=== PATIENT | female | born 1990 | race Caucasian/White ===

== ENCOUNTER 2017-12-08 12:36 | Inpatient (IN) | payer MEDICARE, OTHER ==
[~2017-12-08] VITALS: Ht 165.1 cm; Wt 90.5 kg
[~2017-12-08 12:36] MED LIST: AMET90TA PO; CLON.5 PO; CLON1 PO; CYMB60CA PO; DEPA500T3 PO; DIPH50TA3 PO; GEOD80CA PO; LEVO25TA4 PO; RISP1 PO
[2017-12-08 12:54] VITALS: BP 134/70; PULSE 115; RESP 16; TEMP 96.9; O2SAT 97
[2017-12-08] MEDS ORDERED: TRAM50TA PO (16:31)
[2017-12-08] MEDS ORDERED: DIPH-148 PO (16:31)
[2017-12-08] MEDS ORDERED: LORA2TAB7 PO (16:31)
[2017-12-08] MEDS ORDERED: CYCL10TA PO (16:31)
[2017-12-08] MEDS ORDERED: BENZ0.5T PO (16:31)
[2017-12-08] MEDS ORDERED: PALI156P IM (16:31)
[2017-12-08] MEDS ORDERED: LORA1TAB12 PO ×2 (16:31)
[2017-12-08 16:37] VITALS: BP 139/80; PULSE 107; RESP 18; TEMP 97.8; O2SAT 98
[2017-12-08] MEDS ORDERED: LORazepam 2 MG TAB PO ONE (16:45)
--- NOTE | 2017-12-08 16:46 | PD ---
HPI Chief Complaint: Psychiatric Symptoms Time Seen by Provider: 16:35 Travel History International Travel<30 days: No Contact w/Intl Traveler<30days: No Traveled to known affect area: No History of Present Illness HPI 27-year-old female with long psychiatric history, with history of bipolar disorder as well as ADHD, is brought in by her mom with increased agitation and acting out at home. Patient is currently on InVega injections which she just got on Monday. She also takes Depakote as well as lorazepam for her psych symptoms. Mom states that she is stating that she is suicidal and feeling that she is afraid she is being followed by someone who wants to kill her. Mom states that she has had to take scissors away from her at home, as she has been suicidal. She has no active lesions or signs of trauma. Patient has no recent illnesses. She denies . History is taken from the mom. She is allergic to latex. PFSH Past Medical History Hx Anticoagulant Therapy: No ADHD: Yes Arthritis: No Autoimmune Disease: No Bipolar Disorder: Yes Depression: Yes Cancer: No Cardiovascular Problems: No Chemotherapy: No Cerebrovascular Accident: No Developmental Delay: Yes (MR) Diabetes: No Diminished Hearing: Yes (slightly dimished left hearing ) Endocrine: Yes Headaches: No Immune Disorder: No Kidney Stones: No Musculoskeletal: No Psychiatric: Yes Reproductive: No Respiratory: No Immunizations Current: Yes Migraines: No Radiation Therapy: No Renal Failure: No Seizures: No Sickle Cell Disease: No Thyroid Disease: Yes (February diagnosis of hypothyroidism) Ulcer: No Influenza Vaccination: No ?: Not : 0 Past Surgical History Surgical History: No Previous Surgery AICD: No Appendectomy: No Cholecystectomy: No Insulin Pump: No Joint Replacement: No Pacemaker: No Other Surgery: No Social History Alcohol Use: No Tobacco Use: No Substance Use: No Allergies-Medications (Allergen,Severity, Reaction): Coded Allergies: latex (Unverified Adverse Reaction, Intermediate, Swelling, 12/08/17) Reported Meds & Prescriptions Reported Meds & Active Scripts Active Depakote ER (Divalproex Sodium) 500 Mg Alex 500 Mg PO BID Irma (Levonorgestrel-Ethinyl Estradiol) 90-20 Mcg Tab 1 Tab PO DAILY Levothyroxine (Levothyroxine Sodium) 25 Mcg Tab 25 Mcg PO DAILY Reported Flexeril (Cyclobenzaprine HCl) 10 Mg Tab 10 Mg PO TID Tramadol (Tramadol HCl) 50 Mg Tab 50 Mg PO Q8H PRN Invega Sustenna Inj (Paliperidone Palmitate) 156 Mg/Ml Inj 156 Mg IM Q28D Benztropine (Benztropine Mesylate) 0.5 Mg Tab 2 Mg PO DAILY Lorazepam 2 Mg Tab 2 Mg PO HS PRN Lorazepam 1 Mg Tab 1 Mg PO NOON PRN Lorazepam 1 Mg Tab 1 Mg PO DAILYAC PRN Zzzquil (Diphenhydramine (Sleep)) 25 Mg Cap 50 Mg PO HS PRN Review of Systems Except as stated in HPI: all other systems reviewed are Neg General / Constitutional: No: Fever Eyes: No: Visual changes HENT: No: Headaches Cardiovascular: No: Chest Pain or Discomfort Respiratory: No: Shortness of Breath Gastrointestinal: No: Abdominal Pain Genitourinary: No: Dysuria Musculoskeletal: No: Pain Skin: No Rash Neurologic: No: Weakness Psychiatric: Positive: Anxiety, Suicidal Ideations, Mood Disorder, No: Depression, Disorder of Thought, Substance Abuse, Homicidal Ideation Endocrine: No: Polydipsia Hematologic/Lymphatic: No: Easy Bruising Physical Exam Exam Limitations: Poor Historian, Psychotic Narrative GENERAL: Patient does appear anxious, and does not answer appropriately. SKIN: Warm and dry. Normal color. Normal turgor. HEAD: Atraumatic. Normocephalic. EYES: Pupils equal and round. No scleral icterus. No injection or drainage. ENT: No nasal bleeding or discharge. Mucous membranes pink and moist. NECK: Trachea midline. Supple and nontender CARDIOVASCULAR: Regular rate and rhythm. RESPIRATORY: No accessory muscle use. Clear to auscultation. Breath sounds equal bilaterally. GASTROINTESTINAL: Abdomen soft, non-tender, nondistended. Hepatic and splenic margins not palpable. MUSCULOSKELETAL: Extremities without clubbing, cyanosis, or edema. No obvious deformities. NEUROLOGICAL: Awake and alert. No obvious cranial nerve deficits. Motor grossly within normal limits. Five out of 5 muscle strength in the arms and legs. Normal speech. PSYCHIATRIC: Appropriate mood and affect; insight and judgment normal. Data Data Last Documented VS Vital Signs Date Time Temp Pulse Resp B/P (MAP) Pulse Ox O2 Delivery O2 Flow Rate FiO2 12/08/17 16:37 97.8 107 18 139/80 (99) 98 Room Air Orders Orders Complete Blood Count With Diff (12/08/17 16:36) Comprehensive Metabolic Panel (12/08/17 16:36) Thyroid Stimulating Hormone (12/08/17 16:36) Urinalysis - C+S If Indicated (12/08/17 16:36) Valproic Acid (Depakene) (12/08/17 16:36) Psych Screen (12/08/17 16:36) Drug Screen, Random Urine (12/08/17 16:36) Alcohol (Ethanol) (12/08/17 16:36) Lorazepam (Ativan) (12/08/17 16:45) Labs Laboratory Tests Test 12/08/17 17:10 Urine Color YELLOW Urine Turbidity HAZY Urine pH 6.0 Urine Specific [place] 1.025 Urine Protein NEG mg/dL Urine Glucose (UA) 300 mg/dL Urine Ketones 10 mg/dL Urine Occult Blood SMALL Urine Nitrite NEG Urine Bilirubin NEG Urine Urobilinogen LESS THAN 2.0 MG/DL Urine Leukocyte Esterase NEG Urine RBC 4 /hpf Urine WBC LESS THAN 1 /hpf Urine Squamous Epithelial Cells 16 /hpf Urine Mucus FEW /lpf Microscopic Urinalysis Comment CULT NOT INDICATED MDM Medical Decision Making Medical Screen Exam Complete: Yes Emergency Medical Condition: Yes Medical Record Reviewed: Yes Differential Diagnosis Psychosis. Suicidal ideation. Need for psychiatric evaluation. Narrative Course Patient appears medically stable at time of exam. Psychiatric labs ordered per protocol including Depakote. Patient is given 2 mg lorazepam p.o. Patient is medically cleared for psychiatric evaluation. Condition: Stable Nas Elaine Dec 08, 2017 16:46
[2017-12-08 18:33] LABS: BILIRUBIN, URINE NEG (NEG); BLOOD, URINE SMALL (NEG); GLUCOSE,URINE 300 mg/dL (NEG); KETONE, URINE 10 mg/dL (NEG); MUCUS URINE FEW /lpf (OCC); NITRITE,URINE NEG (NEG); SQUAMOUS EPITHELIAL CELL URINE 16 /hpf (0-5); URINE COLOR YELLOW (YELLW/STRAW); URINE LEUKOCYTE ESTERASE NEG (NEG)
[2017-12-08 19:01] LABS: AUTOMATED NEUTROPHIL # 5.7 TH/MM3 (1.8-7.7); BASOPHIL % 0.4 % (0.0-2.0); EOSINOPHIL # 0.1 TH/MM3 (0-0.4); EOSINOPHIL % 0.6 % (0.0-4.0); HEMATOCRIT 41.9 % (35.0-46.0); HEMOGLOBIN 14.2 GM/DL (11.6-15.3); LYMPHOCYTE # 2.9 TH/MM3 (1.0-4.8); MEAN CELL VOLUME 85.8 FL (80.0-100.0); MEAN CORPUSCULAR HEMOGLOBIN 29.1 PG (27.0-34.0); MEAN CORPUSCULAR HGB CONC 33.9 % (32.0-36.0); MEAN PLATELET VOLUME 8.8 FL (7.0-11.0); MONO % 7.3 % (0.0-8.0); MONOCYTE # 0.7 TH/MM3 (0-0.9); NEUT % 60.7 % (16.0-70.0); PLATELET COUNT 221 TH/MM3 (150-450); RED BLOOD COUNT 4.89 MIL/MM3 (4.00-5.30); RED CELL DISTRIBUTION WIDTH 12.9 % (11.6-17.2); WHITE BLOOD COUNT 9.3 TH/MM3 (4.0-11.0)
[2017-12-08 19:04] VITALS: BP 150/84; PULSE 114; RESP 18; TEMP 98.5; O2SAT 97
[2017-12-08 19:27] LABS: ALBUMIN 3.2 GM/DL (3.4-5.0); AST (GOT) 14 U/L (15-37); BICARBONATE 26.9 MEQ/L (21.0-32.0); BLOOD UREA NITROGEN 9 MG/DL (7-18); CALCIUM 9.3 MG/DL (8.5-10.1); CHLORIDE 100 MEQ/L (98-107); CREATININE 0.55 MG/DL (0.50-1.00); GLOMERULAR FILTRATION RATE 134 ML/MIN (>89); GLUCOSE,RANDOM 99 MG/DL (74-106); SODIUM (NA) 137 MEQ/L (136-145)
[2017-12-08 19:28] LABS: ALT (GPT) 21 U/L (10-53)
[2017-12-08 19:38] LABS: ALKALINE PHOSPHATASE 130 U/L (45-117); TOTAL BILIRUBIN ADULT 0.3 MG/DL (0.2-1.0); TOTAL PROTEIN 7.3 GM/DL (6.4-8.2)
[2017-12-08 22:13] VITALS: BP 117/73; PULSE 102; RESP 18; TEMP 98.4; O2SAT 96
[2017-12-09 01:49] VITALS: BP 132/81; PULSE 130; RESP 18; TEMP 98.6; O2SAT 95
[2017-12-09] MEDS ORDERED: LORazepam 2 MG/ML VIAL IM ONE (02:00)
[2017-12-09 06:14] VITALS: BP 124/72; PULSE 89; RESP 18; TEMP 98; O2SAT 95
[2017-12-09] MEDS ORDERED: LORazepam 1 MG TAB PO ONE (09:45)
[2017-12-09 10:15] VITALS: BP_SYST 122; BP_SYST 129; BP_DIAS 63; BP_DIAS 75; PULSE 120; PULSE 69; RESP 18; O2SAT 95; O2SAT 99
[2017-12-09] MEDS ORDERED: MAGNESIUM HYDROXIDE SUSP 30 ML CUP PO PRN (13:15)
[2017-12-09] MEDS ORDERED: ALUMINUM/MAGNESIUM/SIMETH 30 ML CUP PO PRN (13:15)
[2017-12-09] MEDS ORDERED: LORazepam 2 MG/ML VIAL IM PRN (13:15)
[2017-12-09 13:27] VITALS: BP 134/78; PULSE 112; RESP 20; TEMP 97.7; O2SAT 98
--- NOTE | 2017-12-09 13:28 | HHI.HP ---
Provisional Diagnosis Admission Date Dec 09, 2017 at 13:05 Agar I. Unspecified psychosis Certification of Person's Competence To Provide Express and Informed Consent I have personally examined Jarocho Castillo , a person being served at [facility] on, Dec 09, 2017 13:13. Express and informed consent means consent voluntarily given in writing, by a competent person, after sufficient explanation and disclosure of the subject matter involved to enable the person to make a knowing and willful decision without any element of force, fraud, deceit, duress, or other form of constraint or coercion. This person is 18 years of age or older, is not now known to be incompetent to consent to treatment with a guardian advocate, and does not have a health care surrogate or proxy currently making medical treatment decisions. I have found this person to be one of the following: [] Competent to provide express and informed consent, as defined above, for voluntary admission to this facility and is competent to provide express and informed consent for treatment. He/she has the consistent capacity to make well reasoned, willful, and knowing decisions concerning his or her medical or mental health treatment. The person fully and consistently understands the purpose of the admission for examination/placement and is fully capable of personally exercising all rights assured [place]] Incompetent to provide express and informed consent to voluntary admission , and this is incompetent to provide express and informed consent to treatment. The person must be transferred to involuntary status and a petition for a guardian advocate filed with the Circuit Court. [] Refusing to provide express and informed consent to voluntary admission but is competent to provide express and informed consent for treatment. The person must be discharged or transferred to involuntary status. Form shall be completed within 24 hours of a person's arrival at the receiving facility and filed in the clinical record of each person: 1. Admitted on a voluntary basis 2. Permitted to provide express and informed consent to his/her own treatment 3. Allowed to transfer from involuntary to voluntary status 4. Prior to permitting a person to consent to his or her own treatment after having been previously found incompetent to consent to treatment. History of Present Illness Capacity: Lacks Capacity HPI Patient is a 27-year-old woman, single, domiciled with mother, with a past psychiatric history of intellectual deficit, bipolar disorder as per chart , ADHD, previous psychiatric admissions, unknown if previous suicide attempt or self injurious behavior, was brought in by mom due to agitation and acting out at home who was brought in under [facility] act due to having threatened to stab herself with scissors along with paranoid ideations which she was admitted to the inpatient psychiatry for further evaluation and management. Patient was seen at the ER noted to be, cooperative, concrete thought processes during interview as patient has significant intellectual deficit. Patient states that she had been feeling "not so good" stating that people were laughing at her. Patient is alert and oriented 3, patient states that she was brought in by her caregiver as a caregiver was concerned because she was talking to herself. Patient states that she had ever seen her do that and was hearing the voice of Jack, kristian and, states hearing his voice. Patient states she also stated that she wanted to see her father having unable to elaborate. Patient states that she was having thoughts of hurting herself this morning the voices are saying mean things. She states that he told everyone during her last hospitalizations that the voices went away so that she can go home but mentions that they never did. She also reports that the auditory hallucinations started after she had met a boy named Jack at [facility]. As per chart patient recently was continued on Invega cisterna with her last dose on Monday. As per collateral obtained in the ER mother reported that patient had been suicidal and concerned that patient was afraid someone was following her and wants to kill her. Mother had also reported that she had to take scissors away from home due to patient being suicidal. Review of Systems Integumentary: COMPLAINS OF: Rash (on medial aspects of arms) Except as stated in HPI: all other systems reviewed are Neg Past Psych History Psychological trauma history unknown as history is limited due to patient's intellectual deficits Violence risk - others (6 mos) low Violence risk - self (6 mos) elevated due to recent suicidal statements Substance Abuse History Drugs/Alcohol past 12 months None as per chart Past Family Social History Coded Allergies: latex (Unverified Adverse Reaction, Intermediate, Swelling, 12/08/17) Active Scripts Divalproex ER (Depakote ER) 500 Mg Alex, 500 MG PO BID for health, #30 TAB 2 Refills Prov:Francisco J Turner MD 08/24/16 Levonorgestrel-Ethinyl Estradiol (Irma) 90-20 Mcg Tab, 1 TAB PO DAILY for Control, #28 TAB 0 Refills Prov:Francisco J Turner MD 07/26/16 Levothyroxine (Levothyroxine) 25 Mcg Tab, 25 MCG PO DAILY for Thyroid, #30 TAB 0 Refills Prov:Francisco J Turner MD 07/26/16 Reported Medications Cyclobenzaprine (Flexeril) 10 Mg Tab, 10 MG PO TID for Muscle Spasm, #90 TAB 0 Refills 12/08/17 Tramadol (Tramadol) 50 Mg Tab, 50 MG PO Q8H Y for PAIN, TAB 0 Refills 12/08/17 Paliperidone Palmitate Inj (Invega Sustenna Inj) 156 Mg/Ml Inj, 156 MG IM Q28D for Schizophrenia, #1 VIAL 0 Refills 12/08/17 Benztropine (Benztropine) 0.5 Mg Tab, 2 MG PO DAILY, #60 TAB 0 Refills 12/08/17 Lorazepam (Lorazepam) 2 Mg Tab, 2 MG PO HS Y for ANXIETY AND/OR INSOMNIA, TAB 0 Refills 12/08/17 Lorazepam (Lorazepam) 1 Mg Tab, 1 MG PO NOON Y for ANXIETY AND/OR INSOMNIA, TAB 0 Refills 12/08/17 Lorazepam (Lorazepam) 1 Mg Tab, 1 MG PO DAILYAC Y for ANXIETY, TAB 0 Refills 12/08/17 Diphenhydramine (Sleep) (Zzzquil) 25 Mg Cap, 50 MG PO HS Y for INSOMNIA, CAP 0 Refills 12/08/17 Discontinued Scripts Dulabelardo SINGH (Adrienmbalta ) 60 Mg Capdr, 60 MG PO DAILY for depression/anxiety, #30 CAP 2 Refills Prov:Francisco J Turner MD 08/24/16 Risperidone (Risperdal) 1 Mg Tab, 1 MG PO BID for health, #60 TAB 2 Refills Prov:Francisco J Turner MD 08/24/16 Clonazepam (Klonopin) 1 Mg Tab, 1 MG PO 1 am 1hs for health, #60 TAB 2 Refills Prov:Francisco J Turner MD 08/24/16 Clonazepam (Klonopin) 0.5 Mg Tab, 0.5 MG PO 1 at 1600 for health, #30 TAB 2 Refills Prov:Francisco J Turner MD 08/24/16 Ziprasidone (Geodon) 80 Mg Cap, 80 MG PO HS for health, #30 CAP 2 Refills Prov:Francisco J Turner MD 08/24/16 Levonorgestrel-Ethinyl Estradiol (Irma) 90-20 Mcg Tab, 1 TAB PO DAILY for Control, #28 TAB 0 Refills Prov:Francisco J Turner MD 07/26/16 Current Medications Medications (Trade) Dose Ordered Sig/Yazmin Route Start Time Stop Time Status Last Admin (Ativan) 1 mg Q6H PRN PO 12/09/17 13:15 UNV (Ativan Inj) 1 mg Q6H PRN IM 12/09/17 13:15 UNV (Benadryl) 50 mg HS PRN PO 12/09/17 13:15 UNV (Tylenol) 650 mg Q4H PRN PO 12/09/17 13:15 UNV (Milk Of Magnesia Liq) 30 ml DAILY PRN PO 12/09/17 13:15 UNV (Mag-Al Plus Susp Liq) 30 ml Q6H PRN PO 12/09/17 13:15 UNV (Habitrol 21 Mg Patch.24 Hr) 1 patch DAILY T-DERMAL 12/10/17 09:00 UNV (Cogentin) 2 mg DAILY PO 12/10/17 09:00 UNV (Depakote Er) 500 mg BID PO 12/09/17 21:00 UNV (Synthroid) 25 mcg DAILY PO 12/10/17 09:00 UNV (Invega Sustenna Inj) 156 mg Q28D IM 12/09/17 13:15 UNV Non-Formulary Medication 1 tab DAILY PO 12/10/17 09:00 UNV Family Psych History unknown as history is limited due to patient's intellectual deficits Social History Single, domiciled with mom. Patient's Strengths (min. 2) Verbal and communicative Physical Exam Patient noted to be in acute distress although noted to have rash on the medial aspect of both arms, no gross motor of maladies, no signs of EPS or tremor, no psychomotor agitation or retardation. Vital Signs Vital Signs Date Time Temp Pulse Resp B/P (MAP) Pulse Ox O2 Delivery O2 Flow Rate FiO2 12/09/17 13:00 12/09/17 10:15 120 18 95 Room Air 12/09/17 06:14 98.0 Lab Results Labs reviewed Test 12/08/17 17:10 12/08/17 18:00 Urine Color YELLOW Urine Turbidity HAZY Urine pH 6.0 Urine Specific [place] 1.025 Urine Protein NEG mg/dL Urine Glucose (UA) 300 mg/dL Urine Ketones 10 mg/dL Urine Occult Blood SMALL Urine Nitrite NEG Urine Bilirubin NEG Urine Urobilinogen LESS THAN 2.0 MG/DL Urine Leukocyte Esterase NEG Urine RBC 4 /hpf Urine WBC LESS THAN 1 /hpf Urine Squamous Epithelial Cells 16 /hpf Urine Mucus FEW /lpf Microscopic Urinalysis Comment CULT NOT INDICATED Urine Opiates Screen NEG Urine Barbiturates Screen NEG Urine Amphetamines Screen NEG Urine Benzodiazepines Screen NEG Urine Cocaine Screen NEG Urine Cannabinoids Screen NEG White Blood Count 9.3 TH/MM3 Red Blood Count 4.89 MIL/MM3 Hemoglobin 14.2 GM/DL Hematocrit 41.9 % Mean Corpuscular Volume 85.8 FL Mean Corpuscular Hemoglobin 29.1 PG Mean Corpuscular Hemoglobin Concent 33.9 % Red Cell Distribution Width 12.9 % Platelet Count 221 TH/MM3 Mean Platelet Volume 8.8 FL Neutrophils (%) (Auto) 60.7 % Lymphocytes (%) (Auto) 31.0 % Monocytes (%) (Auto) 7.3 % Eosinophils (%) (Auto) 0.6 % Basophils (%) (Auto) 0.4 % Neutrophils # (Auto) 5.7 TH/MM3 Lymphocytes # (Auto) 2.9 TH/MM3 Monocytes # (Auto) 0.7 TH/MM3 Eosinophils # (Auto) 0.1 TH/MM3 Basophils # (Auto) 0.0 TH/MM3 CBC Comment DIFF FINAL Differential Comment Blood Urea Nitrogen 9 MG/DL Creatinine 0.55 MG/DL Random Glucose 99 MG/DL Total Protein 7.3 GM/DL Albumin 3.2 GM/DL Calcium Level 9.3 MG/DL Alkaline Phosphatase 130 U/L Aspartate Amino Transf (AST/SGOT) 14 U/L Alanine Aminotransferase (ALT/SGPT) 21 U/L Total Bilirubin 0.3 MG/DL Sodium Level 137 MEQ/L Potassium Level 3.4 MEQ/L Chloride Level 100 MEQ/L Carbon Dioxide Level 26.9 MEQ/L Anion Gap 10 MEQ/L Estimat Glomerular Filtration Rate 134 ML/MIN Thyroid Stimulating Hormone 3rd Gen 2.120 uIU/ML Valproic Acid (Depakene) Level 73 MCG/ML Ethyl Alcohol Level LESS THAN 3 MG/DL Mental Status Examination Appearance: Appropriate Consciousness: Alert Orientation: Person, Place, Date/Time Motor Activity: Normal gait Speech: Unremarkable Language: Adequate Fund of Knowledge: Poor Attention and Concentration: Adequate Memory: Unremarkable Mood: Anxious Affect: Other (Childlike) Thought Process & Associations: Other ([place]) Thought Content: Bizarre thinking, Delusional Hallucination Type: Auditory Delusion Type: Paranoid Suicidal Ideation: Yes (Denies today) Suicidal Plan: No Suicidal Intention: No Homicidal Ideation: No Homicidal Plan: No Homicidal Intention: No Insight: Poor Judgment: Poor Assessment & Plan Problem List: (1) Unspecified psychosis ICD Codes: F29 - Unspecified psychosis not due to a substance or known physiological condition Assessment & Plan Estimated LOS: 3-5 days. Patient is a 27-year-old woman with intellectual deficits, who carries a diagnosis of bipolar disorder, ADHD, with previous psychiatric admissions was admitted under [facility] act due to patient having threatened to stab herself with scissors along with paranoid ideations and reported auditory hallucinations which patient will be admitted to the inpatient psychiatry for further evaluation and management. Petition for involuntary hospitalization started, second opinion requested. Patient will continue her home meds with titration as needed for psychosis. Social work intervention for psychosocial assessment. Continue monitor mood and behavior. Collateral information pending from mother. Hospitalist consulted for noted rash on arms bilaterally. Discharge planning in progress. Discharge Planning Patient to return back to mother's home when psychiatrically stable. Aguilar Roger MD Dec 09, 2017 13:28
--- NOTE | 2017-12-09 15:21 | PD.CONS ---
HPI Service [facility] Consult Requested By Reason for Consult arm rash Primary Care Physician Bob Hodge M.D. Diagnoses: History of Present Illness Ms. Castillo is a 27-year-old female with a past medical history significant for hypothyroidism, bipolar disorder, depression, ADHD, and neuro intellectual delay who lives with her mother and presents to the ED on 12/08 due to increasing agitation per mother. ED documentation was reviewed, apparently patient is currently on Invega injections, Depakote, and lorazepam to control his psychiatric symptoms however recently has become increasingly agitated and acting out at home. Patient also made suicidal statements to mother about killing herself. [facility] has been consulted to evaluate patient for arm rash. Patient is seen and examined in her room with nurse no present. Patient denies any itching, pain or irritation on skin. She reports that sometimes her bottoms which. She denies any fevers, chills, nausea, vomiting, diarrhea, or dysuria. Patient repeatedly tells me that she does not want to go to a assisted. Review of Systems Except as stated in HPI: all other systems reviewed are Neg Past Family Social History Allergies: Coded Allergies: latex (Unverified Adverse Reaction, Intermediate, Swelling, 12/08/17) Past Medical History Hypothyroidism Bipolar disorder ADHD Depression Neuro developmental delay Past Surgical History Denies past surgical history Reported Medications Reported Meds & Active Scripts Active Depakote ER (Divalproex Sodium) 500 Mg Alex 500 Mg PO BID Irma (Levonorgestrel-Ethinyl Estradiol) 90-20 Mcg Tab 1 Tab PO DAILY Levothyroxine (Levothyroxine Sodium) 25 Mcg Tab 25 Mcg PO DAILY Reported Flexeril (Cyclobenzaprine HCl) 10 Mg Tab 10 Mg PO TID Tramadol (Tramadol HCl) 50 Mg Tab 50 Mg PO Q8H PRN Invega Sustenna Inj (Paliperidone Palmitate) 156 Mg/Ml Inj 156 Mg IM Q28D Benztropine (Benztropine Mesylate) 0.5 Mg Tab 2 Mg PO DAILY Lorazepam 2 Mg Tab 2 Mg PO HS PRN Lorazepam 1 Mg Tab 1 Mg PO NOON PRN Lorazepam 1 Mg Tab 1 Mg PO DAILYAC PRN Zzzquil (Diphenhydramine (Sleep)) 25 Mg Cap 50 Mg PO HS PRN Active Ordered Medications Current Medications Medications (Trade) Dose Ordered Sig/Yazmin Route Start Time Stop Time Status Last Admin (Ativan) 1 mg Q6H PRN PO 12/09/17 13:15 (Ativan Inj) 1 mg Q6H PRN IM 12/09/17 13:15 (Benadryl) 50 mg HS PRN PO 12/09/17 21:00 (Tylenol) 650 mg Q4H PRN PO 12/09/17 13:15 (Milk Of Magnesia Liq) 30 ml DAILY PRN PO 12/09/17 13:15 (Mag-Al Plus Susp Liq) 30 ml Q6H PRN PO 12/09/17 13:15 (Habitrol 21 Mg Patch.24 Hr) 1 patch DAILY T-DERMAL 12/10/17 09:00 UNV (Cogentin) 2 mg DAILY PO 12/10/17 09:00 (Depakote Er) 500 mg BID PO 12/09/17 21:00 (Synthroid) 25 mcg DAILY@0600 PO 12/10/17 06:00 (Invega Sustenna Inj) 156 mg Q28D IM 01/02/18 09:00 Patient Own Medication PT OWN MED: AMETH... DAILY PO 12/10/17 09:00 Future Hold Family History Patient is unable to provide past family history Social History Patient unable to provide past social history, poor historian due to developmental delay. Physical Exam Vital Signs Vital Signs Date Time Temp Pulse Resp B/P (MAP) Pulse Ox O2 Delivery O2 Flow Rate FiO2 12/09/17 13:27 97.7 112 20 134/78 (96) 98 12/09/17 13:00 12/09/17 10:15 120 18 129/63 (85) 95 Room Air 12/09/17 06:14 98.0 89 18 124/72 (89) 95 Room Air 12/09/17 01:49 98.6 130 18 132/81 (98) 95 Room Air 12/08/17 22:13 98.4 102 18 117/73 (88) 96 Room Air 12/08/17 19:04 98.5 114 18 150/84 (106) 97 Room Air 12/08/17 16:37 97.8 107 18 139/80 (99) 98 Room Air 12/08/17 16:32 18 Physical Exam GENERAL: This is a well-nourished, well-developed patient, in no apparent distress. SKIN: No rashes, ecchymoses or lesions. Cool and dry. HEAD: Atraumatic. Normocephalic. EYES: Pupils equal round and reactive. No scleral icterus. No injection or drainage. ENT: Nose without bleeding. Airway patent. NECK: Trachea midline. CARDIOVASCULAR: Regular rate and rhythm without murmurs, gallops, or rubs. RESPIRATORY: Clear to auscultation. Breath sounds equal bilaterally. No wheezes , rales, or rhonchi. GASTROINTESTINAL: Abdomen soft, non-tender, round. No guarding. MUSCULOSKELETAL: Extremities without clubbing, cyanosis, or edema. No joint tenderness, effusion, or edema noted. NEUROLOGICAL: Awake and alert. Motor and sensory grossly within normal limits. Moves all extremities spontaneously. Speech is slow but clear. Child like demeanor. Laboratory Laboratory Tests Test 12/08/17 17:10 12/08/17 18:00 Urine Color YELLOW Urine Turbidity HAZY Urine pH 6.0 Urine Specific [place] 1.025 Urine Protein NEG Urine Glucose (UA) 300 Urine Ketones 10 Urine Occult Blood SMALL Urine Nitrite NEG Urine Bilirubin NEG Urine Urobilinogen LESS THAN 2.0 Urine Leukocyte Esterase NEG Urine RBC 4 Urine WBC LESS THAN 1 Urine Squamous Epithelial Cells 16 Urine Mucus FEW Microscopic Urinalysis Comment CULT NOT INDICATED Urine Opiates Screen NEG Urine Barbiturates Screen NEG Urine Amphetamines Screen NEG Urine Benzodiazepines Screen NEG Urine Cocaine Screen NEG Urine Cannabinoids Screen NEG White Blood Count 9.3 Red Blood Count 4.89 Hemoglobin 14.2 Hematocrit 41.9 Mean Corpuscular Volume 85.8 Mean Corpuscular Hemoglobin 29.1 Mean Corpuscular Hemoglobin Concent 33.9 Red Cell Distribution Width 12.9 Platelet Count 221 Mean Platelet Volume 8.8 Neutrophils (%) (Auto) 60.7 Lymphocytes (%) (Auto) 31.0 Monocytes (%) (Auto) 7.3 Eosinophils (%) (Auto) 0.6 Basophils (%) (Auto) 0.4 Neutrophils # (Auto) 5.7 Lymphocytes # (Auto) 2.9 Monocytes # (Auto) 0.7 Eosinophils # (Auto) 0.1 Basophils # (Auto) 0.0 CBC Comment DIFF FINAL Differential Comment Blood Urea Nitrogen 9 Creatinine 0.55 Random Glucose 99 Total Protein 7.3 Albumin 3.2 Calcium Level 9.3 Alkaline Phosphatase 130 Aspartate Amino Transf (AST/SGOT) 14 Alanine Aminotransferase (ALT/SGPT) 21 Total Bilirubin 0.3 Sodium Level 137 Potassium Level 3.4 Chloride Level 100 Carbon Dioxide Level 26.9 Anion Gap 10 Estimat Glomerular Filtration Rate 134 Thyroid Stimulating Hormone 3rd Gen 2.120 Valproic Acid (Depakene) Level 73 Ethyl Alcohol Level LESS THAN 3 Result Diagram: 12/08/17 1800 12/08/17 1800 Assessment and Plan Assessment and Plan 27-year-old female with past medical history of hypothyroidism, bipolar disorder, ADHD, depression, and neuro developmental delay brought to the emergency department for psychiatric evaluation due to increasing agitation , and suicidal statements by mother. [facility] has been consulted for evaluation of rash on medial aspect of arms. Bipolar disorder ADHD Depression -Treatment plan per psychiatry Hypokalemia -CMP reviewed, potassium 3.4, replaced with 10 meq's of KCl. Hypothyroidism -Continue home dose Synthroid, TSH within normal limits. Bilateral forearm rash -Skin was examined, I do not see any sign of a rash on her skin. -Patient does have a history of latex allergy DVT prophylaxis- ambulating Thank you for this consultation, [facility] will sign off. Please reconsult if needed. Fina Clement Dec 09, 2017 15:21
[2017-12-09] MEDS ORDERED: POTASSIUM CHLORIDE 10 MEQ CAP PO ONE (15:45)
[2017-12-09] MEDS: LORazepam 1 MG TAB PO PRN (16:28)
[2017-12-09 18:01] VITALS: BP 127/87; PULSE 112; RESP 20; TEMP 97.5; O2SAT 97
[2017-12-09] MEDS: diphenhydrAMINE HCL 50 MG CAP PO PRN (20:32)
[2017-12-09] MEDS: DIVALPROEX SODIUM E.R. 500 MG TAB PO SCH (20:32)
[2017-12-10] MEDS: LEVOTHYROXINE SODIUM 25 MCG TAB PO SCH (05:09)
[2017-12-10 06:02] VITALS: BP 118/62; PULSE 101; RESP 18; TEMP 98.2; O2SAT 97
[2017-12-10] MEDS ORDERED: NICOTINE 21 MG/24 HR PATCH T-DERMAL SCH (09:00)
[2017-12-10] MEDS: BENZTROPINE MESYLATE 2 MG TAB PO SCH (09:00)
[2017-12-10] MEDS ORDERED: AMETHYST PO SCH (09:00)
[2017-12-10] MEDS: DIVALPROEX SODIUM E.R. 500 MG TAB PO SCH ×2 (09:00→20:27)
[2017-12-10] MEDS: LORazepam 1 MG TAB PO PRN ×2 (09:11→16:44)
[2017-12-10] MEDS: ACETAMINOPHEN 325 MG TAB PO PRN ×2 (09:18→16:44)
[2017-12-10 10:39] LABS: BICARBONATE 24.6 MEQ/L (21.0-32.0); BLOOD UREA NITROGEN 9 MG/DL (7-18); CHLORIDE 103 MEQ/L (98-107); CREATININE 0.61 MG/DL (0.50-1.00); GLOMERULAR FILTRATION RATE 119 ML/MIN (>89); GLUCOSE,RANDOM 152 MG/DL (74-106); SODIUM (NA) 138 MEQ/L (136-145)
[2017-12-10 10:40] LABS: CHOLESTEROL 147 MG/DL (120-200)
[2017-12-10 10:49] LABS: CHOLESTEROL/ HDL RATIO 4.74 RATIO; LDL CHOLESTEROL 79 MG/DL (0-99); TRIGLYCERIDES 186 MG/DL (42-150)
--- NOTE | 2017-12-10 13:07 | PD.PSY.CON ---
Provisional Diagnosis Admission Date Dec 09, 2017 at 13:05 [place]. Unspecified psychosis History of Present Illness Service Psychiatry Consult Requested By Psychiatry Reason for Consult 2nd Opinion Primary Care Physician Bob Hodge M.D. HPI Pt seen and discussed with staff. Chart reviewed. Pt is a 27YOWF with a hx of intellectual disability was [place] [facility] to allegations of threats to stab self and paranoia and hallucinations. Staff report that pt was was anxious and agitated this morning and was given ativan PO X1. She readily admits allegations in BA and states that she has been hearing voices of Jack. "My mom says its not real b/c I know him but its different." She states that she is sad b/c father's birthday is coming up and she is worried that mother is sending her to a penitentiary. She states that she still has thoughts of hurting self. No SI/HI. Review of Systems Psychiatric: COMPLAINS OF: Mood changes, Depression, Hallucinations, Suicidal Ideation Past Family Social History Coded Allergies: latex (Unverified Adverse Reaction, Intermediate, Swelling, 12/08/17) Past Medical History hypothyroidism Active Scripts Divalproex ER (Depakote ER) 500 Mg Alex, 500 MG PO BID for health, #30 TAB 2 Refills Prov:Francisco J Turner MD 08/24/16 Levonorgestrel-Ethinyl Estradiol (Irma) 90-20 Mcg Tab, 1 TAB PO DAILY for Control, #28 TAB 0 Refills Prov:Francisco J Turner MD 07/26/16 Levothyroxine (Levothyroxine) 25 Mcg Tab, 25 MCG PO DAILY for Thyroid, #30 TAB 0 Refills Prov:Francisco J Turner MD 07/26/16 Reported Medications Cyclobenzaprine (Flexeril) 10 Mg Tab, 10 MG PO TID for Muscle Spasm, #90 TAB 0 Refills 12/08/17 Tramadol (Tramadol) 50 Mg Tab, 50 MG PO Q8H Y for PAIN, TAB 0 Refills 12/08/17 Paliperidone Palmitate Inj (Invega Sustenna Inj) 156 Mg/Ml Inj, 156 MG IM Q28D for Schizophrenia, #1 VIAL 0 Refills 12/08/17 Benztropine (Benztropine) 0.5 Mg Tab, 2 MG PO DAILY, #60 TAB 0 Refills 12/08/17 Lorazepam (Lorazepam) 2 Mg Tab, 2 MG PO HS Y for ANXIETY AND/OR INSOMNIA, TAB 0 Refills 12/08/17 Lorazepam (Lorazepam) 1 Mg Tab, 1 MG PO NOON Y for ANXIETY AND/OR INSOMNIA, TAB 0 Refills 12/08/17 Lorazepam (Lorazepam) 1 Mg Tab, 1 MG PO DAILYAC Y for ANXIETY, TAB 0 Refills 12/08/17 Diphenhydramine (Sleep) (Zzzquil) 25 Mg Cap, 50 MG PO HS Y for INSOMNIA, CAP 0 Refills 12/08/[address] (Umairalsangeetha SINGH) 60 Mg Capdr, 60 MG PO DAILY for depression/anxiety, #30 CAP 2 Refills Prov:Francisco J Turner MD 08/24/16 Risperidone (Risperdal) 1 Mg Tab, 1 MG PO BID for health, #60 TAB 2 Refills Prov:Francisco J Turner MD 08/24/16 Clonazepam (Klonopin) 1 Mg Tab, 1 MG PO 1 am 1hs for health, #60 TAB 2 Refills Prov:Francisco J Turner MD 08/24/16 Clonazepam (Klonopin) 0.5 Mg Tab, 0.5 MG PO 1 at 1600 for health, #30 TAB 2 Refills Prov:Francisco J Turner MD 08/24/16 Ziprasidone (Geodon) 80 Mg Cap, 80 MG PO HS for health, #30 CAP 2 Refills Prov:Francisco J Turner MD 08/24/16 Levonorgestrel-Ethinyl Estradiol (Irma) 90-20 Mcg Tab, 1 TAB PO DAILY for Control, #28 TAB 0 Refills Prov:Francisco J Turner MD 07/26/16 Current Medications Medications (Trade) Dose Ordered Sig/Yazmin Route Start Time Stop Time Status Last Admin (Ativan) 1 mg Q6H PRN PO 12/09/17 13:15 12/10/17 09:11 (Ativan Inj) 1 mg Q6H PRN IM 12/09/17 13:15 (Benadryl) 50 mg HS PRN PO 12/09/17 21:00 12/09/17 20:32 (Tylenol) 650 mg Q4H PRN PO 12/09/17 13:15 12/10/17 09:18 (Milk Of Magnesia Liq) 30 ml DAILY PRN PO 12/09/17 13:15 (Mag-Al Plus Susp Liq) 30 ml Q6H PRN PO 12/09/17 13:15 (Cogentin) 2 mg DAILY PO 12/10/17 09:00 12/10/17 09:00 (Depakote Er) 500 mg BID PO 12/09/17 21:00 12/10/17 09:00 (Synthroid) 25 mcg DAILY@0600 PO 12/10/17 06:00 12/10/17 05:09 (Invega Sustenna Inj) 156 mg Q28D IM 01/02/18 09:00 Patient Own Medication PT OWN MED: AMETH... DAILY PO 12/10/17 09:00 Future Hold Family Psych History unknown Social History lives with mother. disabled Patient's Strengths (min. 2) Verbal and communicative Physical Exam No acute distress. Vital Signs Vital Signs Date Time Temp Pulse Resp B/P (MAP) Pulse Ox O2 Delivery O2 Flow Rate FiO2 12/10/17 06:02 98.2 101 18 118/62 (80) 97 12/09/17 10:15 Room Air I/O 12/10/17 12/10/17 12/11/17 08:00 16:00 00:00 Intake Total 360 ml Balance 360 ml Lab Results Test 12/10/17 09:30 Blood Urea Nitrogen 9 MG/DL Creatinine 0.61 MG/DL Random Glucose 152 MG/DL Calcium Level 9.0 MG/DL Sodium Level 138 MEQ/L Potassium Level 4.1 MEQ/L Chloride Level 103 MEQ/L Carbon Dioxide Level 24.6 MEQ/L Anion Gap 10 MEQ/L Estimat Glomerular Filtration Rate 119 ML/MIN Triglycerides Level 186 MG/DL Cholesterol Level 147 MG/DL LDL Cholesterol 79 MG/DL HDL Cholesterol 31.0 MG/DL Cholesterol/HDL Ratio 4.74 RATIO Thyroid Stimulating Hormone 3rd Gen 1.890 uIU/ML Mental Status Examination Appearance: Appropriate Consciousness: Alert Orientation: Person, Place, Date/Time Motor Activity: Normal gait Speech: Unremarkable Language: Adequate Fund of Knowledge: Poor Attention and Concentration: Adequate Memory: Unremarkable Mood: Anxious Affect: Other (Childlike) Thought Process & Associations: Other (Ephraim) Thought Content: Bizarre thinking, Delusional Hallucination Type: Auditory Delusion Type: Paranoid Suicidal Ideation: Yes Suicidal Plan: No Suicidal Intention: No Homicidal Ideation: No Homicidal Plan: No Homicidal Intention: No Insight: Poor Judgment: Poor Assessment & Plan Problem List: (1) Unspecified psychosis ICD Codes: F29 - Unspecified psychosis not due to a substance or known physiological condition Assessment & Plan I agree that pt meets criteria for involuntary hospitalization due to SI and psychosis. 2nd opinion paperwork complted.Estimated LOS: Nano Chery MD Dec 10, 2017 13:07
[2017-12-10 17:45] VITALS: BP 131/82; PULSE 109; RESP 18; TEMP 97.2; O2SAT 97
--- NOTE | 2017-12-10 19:46 | EKG ---
Date Performed: 12/10/2017 Time Performed: 10:53:13 PTAGE: 27 years EKG: SINUS TACHYCARDIA NONSPECIFIC T-WAVE ABNORMALITY Since the previous tracing, no significant change noted ABNORMAL RHYTHM ECG PREVIOUS TRACING : 10/15/2008 11.47 DOCTOR: Billy Marie Interpretating Date/Time 12/10/2017 19:45:05
[2017-12-10] MEDS: diphenhydrAMINE HCL 50 MG CAP PO PRN (20:27)
[2017-12-11] MEDS: LEVOTHYROXINE SODIUM 25 MCG TAB PO SCH (06:01)
[2017-12-11 06:44] VITALS: BP 116/61; PULSE 88; RESP 16; TEMP 97.7
[2017-12-11] MEDS: BENZTROPINE MESYLATE 2 MG TAB PO SCH (09:58)
[2017-12-11] MEDS: AMETHYST PO SCH (09:59)
[2017-12-11] MEDS: DIVALPROEX SODIUM E.R. 500 MG TAB PO SCH ×2 (09:59→20:12)
--- NOTE | 2017-12-11 10:18 | PD.TTN ---
Patient Problems 1. Discharge planning 2. Medication compliance 3. Knowledge deficit 4. Lack of coping skills Progress Toward Goals Provider Present: Dr. Hayden Turner Provider Input: 12/11/17 Will meet with new pt today and begin treatment planning Nurse(s) Present: 12/11/17 None present Psychiatric Counselors Present: Jazlyn Mantilla LCSW Group Spec/RT/OT/CARLSON Present: ALDO Flynn Andrew Harrison, MACIEJ Group Spec/RT/OT/CARLOSN Input: 12/11/17 Attends select groups such as yoko Penn Alessandra COTA/Javan Dec 11, 2017 10:18
--- NOTE | 2017-12-11 13:47 | HHI.PYPN ---
Subjective Remarks Patient initially seen by Dr. Roger a good initial psychiatric evaluation. I have done the initial psychiatric template orders. I will also number med reconciliation review. I both first opinion second opinion medications have been done. Health care surrogate and guardian advocate have also been done. Patient seen and a room with nurse Morales, chart review, patient compliant medications, patient discussed with nurse. Patient calm cooperative with me, she is recognize me from the time when she was a patient of mine in the outpatient clinic. That ended around the end of 2015. She acknowledges some increased auditory hallucinations perhaps of a male voice and visual hallucinations perhaps of her imaginary male friend she is vague about suicidality at the present time. Though she is cooperative with me continues to live with a mother who says that may be some stress since they're starting to discuss exploring placement in a assisted. At this time we'll continue present medications we'll attempt to reach patient's mother discuss further treatment plans and possible placement plans Review of Systems Constitutional: DENIES: Diaphoretic episodes, Fatigue, Fever, Weight gain, Weight loss, Chills, Dizziness, Change in appetite, Night Sweats Endocrine: DENIES: Abnorml menstrual pattern, Heat/cold intolerance, Polydipsia , Polyuria, Polyphagia Eyes: DENIES: Blurred vision, Diplopia, Eye inflammation, Eye pain, Vision loss , Photosensitivity, Double Vision Ears, nose, mouth, throat: DENIES: Tinnitus, Hearing loss, Vertigo, Nasal discharge, Oral lesions, Throat pain, Hoarseness, Ear Pain, Running Nose, Epistaxis, Sinus Pain, Toothache, Odynophagia Respiratory: DENIES: Apneas, Cough, Snoring, Wheezing, Hemoptysis, Sputum production, Shortness of breath Cardiovascular: DENIES: Chest pain, Palpitations, Syncope, Dyspnea on Exertion , PND, Lower Extremity Edema, Orthopnea, Claudication Gastrointestinal: DENIES: Abdominal pain, Black stools, Bloody stools, Constipation, Diarrhea, Nausea, Vomiting, Difficulty Swallowing, Anorexia Genitourinary: DENIES: Abnormal vaginal bleeding, Dysmenorrhea, Dyspareunia, Sexual dysfunction, Urinary frequency, Urinary incontinence, Urgency, Hematuria , Dysuria, Nocturia, Vaginal discharge Musculoskeletal: DENIES: Joint pain, Muscle aches, Stiffness, Joint Swelling, Back pain, Neck pain Integumentary: DENIES: Abnormal pigmentation, Pruritus, Rash, Nail changes, Breast masses, Breast skin changes, Nipple discharge Hematologic/lymphatic: DENIES: Bruising, Lymphadenopathy Immunologic/allergic: DENIES: Eczema, Urticaria Neurologic: DENIES: Abnormal gait, Headache, Localized weakness, Paresthesias, Seizures, Speech Problems, Tremor, Poor Balance Psychiatric: COMPLAINS OF: Depression, Hallucinations, Suicidal Ideation (vague ) Except as stated in HPI: all other systems reviewed are Neg Mental Status Examination Appearance: Appropriate Consciousness: Alert Orientation: Person, Place, Date/Time Motor Activity: Normal gait Speech: Unremarkable Language: Adequate Fund of Knowledge: Poor Attention and Concentration: Adequate Memory: Unremarkable Mood: Anxious Affect: Other (slight increased range and intensity) Thought Process & Associations: Circumstantial, Tangential Thought Content: Bizarre thinking, Delusional Hallucination Type: Auditory, Visual Delusion Type: Paranoid Suicidal Ideation: Yes Suicidal Plan: No Suicidal Intention: No Homicidal Ideation: No Homicidal Plan: No Homicidal Intention: No Insight: Poor Judgment: Poor Results Vitals/IOs Vital Signs Date Time Temp Pulse Resp B/P (MAP) Pulse Ox O2 Delivery O2 Flow Rate FiO2 12/11/17 06:44 97.7 88 16 116/61 (79) 12/10/17 17:45 97 12/09/17 10:15 Room Air Intake and Output 12/11/17 12/11/17 12/12/17 08:00 16:00 00:00 Intake Total 240 ml Balance 240 ml Assessment & Plan Problem List: (1) PDD (pervasive developmental disorder) ICD Codes: F84.9 - Pervasive developmental disorder Status: Acute (2) Bipolar I disorder, moderate, current or most recent episode manic, with psychotic features, with mixed features ICD Codes: F31.2 - Bipolar disorder, current episode manic severe with psychotic features Assessment & Plan Estimated LOS: days patient remains somewhat intense labile with both auditory and visual hallucinations. Did attempt to call patient's mother to discuss this with no answer with have counselor attempt to reach also. For now continue treatment Justification for Cont. Inpt. This time patient decompensated placed on the lower level of care Discharge Planning Return home with mother Francisco J Turner MD Dec 11, 2017 13:47
[2017-12-11 18:06] VITALS: BP 129/81; PULSE 81; RESP 20; TEMP 97.4; O2SAT 97
[2017-12-12 05:59] VITALS: BP 100/56; PULSE 95; RESP 18; TEMP 98.2; O2SAT 97
[2017-12-12] MEDS: LEVOTHYROXINE SODIUM 25 MCG TAB PO SCH (06:00)
[2017-12-12] MEDS: DIVALPROEX SODIUM E.R. 500 MG TAB PO SCH ×2 (08:56→20:15)
[2017-12-12] MEDS: BENZTROPINE MESYLATE 2 MG TAB PO SCH (08:56)
[2017-12-12] MEDS: AMETHYST PO SCH (08:59)
--- NOTE | 2017-12-12 10:55 | HHI.PYPN ---
Subjective Remarks Patient seen in [place] with nurse John and counselor Jazlyn, chart review, patient compliant medications, discussed patient with nurse. Patients calm cooperative no behavior problem continues somewhat intrusive the redirectable. Her speech issues remain though responses are overall fairly well cold oriented. She acknowledges continued auditory hallucinations primarily of poor that she knows. She somewhat vaguely denies any suicidal ideation today for now continue treatment Review of Systems Except as stated in HPI: all other systems reviewed are Neg Mental Status Examination Appearance: Appropriate Consciousness: Alert Orientation: Person, Place, Date/Time Motor Activity: Normal gait Speech: Unremarkable Language: Adequate Fund of Knowledge: Poor Attention and Concentration: Adequate Memory: Unremarkable Mood: Anxious Affect: Other (slight increased range and intensity) Thought Process & Associations: Circumstantial, Tangential Thought Content: Bizarre thinking, Delusional Hallucination Type: Auditory, Visual Delusion Type: Paranoid Suicidal Ideation: Yes Suicidal Plan: No Suicidal Intention: No Homicidal Ideation: No Homicidal Plan: No Homicidal Intention: No Insight: Poor Judgment: Poor Results Vitals/IOs Vital Signs Date Time Temp Pulse Resp B/P (MAP) Pulse Ox O2 Delivery O2 Flow Rate FiO2 12/12/17 05:59 98.2 95 18 100/56 (71) 97 12/09/17 10:15 Room Air Assessment & Plan Problem List: (1) PDD (pervasive developmental disorder) ICD Codes: F84.9 - Pervasive developmental disorder Status: Acute (2) Bipolar I disorder, moderate, current or most recent episode manic, with psychotic features, with mixed features ICD Codes: F31.2 - Bipolar disorder, current episode manic severe with psychotic features Assessment & Plan Estimated LOS: days patient continues somewhat psychotic but overall, cooperative compliant medications. Remains also somewhat childlike and mildly intrusive Justification for Cont. Inpt. This time patient will decompensate of placed in a lower level of care Discharge Planning Probable return home Francisco J Turner MD Dec 12, 2017 10:55
[2017-12-12 18:08] VITALS: BP 122/72; PULSE 78; RESP 18; TEMP 98.6; O2SAT 98
[2017-12-12] MEDS: PALIPERIDONE ER 6 MG TAB PO SCH (19:00)
[2017-12-12] MEDS: LORazepam 1 MG TAB PO SCH (20:14)
[2017-12-13 05:40] VITALS: BP 138/63; PULSE 89; RESP 16; TEMP 98.2; O2SAT 96
[2017-12-13] MEDS: LEVOTHYROXINE SODIUM 25 MCG TAB PO SCH (05:48)
[2017-12-13 05:50] VITALS: BP 97/56; PULSE 89; RESP 16; TEMP 98.2
[2017-12-13 07:49] VITALS: BP 101/54; PULSE 74
[2017-12-13] MEDS: PALIPERIDONE ER 6 MG TAB PO SCH (08:54)
[2017-12-13] MEDS: BENZTROPINE MESYLATE 2 MG TAB PO SCH (08:54)
[2017-12-13] MEDS: DIVALPROEX SODIUM E.R. 500 MG TAB PO SCH ×2 (08:54→20:07)
[2017-12-13] MEDS: AMETHYST PO SCH (09:00)
--- NOTE | 2017-12-13 12:38 | HHI.PYPN ---
Subjective Remarks Patient seen in room with nurse know up, chart reviewed, patient compliant medications, patient discussed with nurse. Patient laying quietly in bed complaining of some mild constipation. She states the voices persistently had a long some vague visual component. She states they are somewhat diminished from admission. She does somewhat vaguely denies suicidality at this time also. Patient scheduled for [employer] tomorrow Review of Systems Except as stated in HPI: all other systems reviewed are Neg Mental Status Examination Appearance: Appropriate Consciousness: Alert Orientation: Person, Place, Date/Time Motor Activity: Normal gait Speech: Unremarkable Language: Adequate Fund of Knowledge: Poor Attention and Concentration: Adequate Memory: Unremarkable Mood: Anxious Affect: Other (slight increased range and intensity) Thought Process & Associations: Circumstantial, Tangential Thought Content: Bizarre thinking, Delusional Hallucination Type: Auditory, Visual Delusion Type: Paranoid Suicidal Ideation: Yes Suicidal Plan: No Suicidal Intention: No Homicidal Ideation: No Homicidal Plan: No Homicidal Intention: No Insight: Poor Judgment: Poor Results Vitals/IOs Vital Signs Date Time Temp Pulse Resp B/P (MAP) Pulse Ox O2 Delivery O2 Flow Rate FiO2 12/13/17 07:49 74 101/54 (70) 12/13/17 05:50 98.2 16 12/12/17 18:08 98 12/09/17 10:15 Room Air Assessment & Plan Problem List: (1) PDD (pervasive developmental disorder) ICD Codes: F84.9 - Pervasive developmental disorder Status: Acute (2) Bipolar I disorder, moderate, current or most recent episode manic, with psychotic features, with mixed features ICD Codes: F31.2 - Bipolar disorder, current episode manic severe with psychotic features Assessment & Plan Estimated LOS: days patient continues overall calm cooperative though behavior problems, but she still has auditory hallucinations of perhaps a vague visual component. For now continue treatment no change patient scheduled for [employer] hearing tomorrow Justification for Cont. Inpt. At this time patient will decompensate a placed a lower level of care Discharge Planning Return home with mother Francisco J Turner MD Dec 13, 2017 12:38
[2017-12-13 18:07] VITALS: BP 110/78; PULSE 114; RESP 16; TEMP 98.1; O2SAT 98
[2017-12-13 18:19] LABS: HEMOGLOBIN A1C 6.1 % (4.3-6.0)
[2017-12-13] MEDS: LORazepam 1 MG TAB PO SCH (20:07)
[2017-12-14 06:02] VITALS: BP 124/58; PULSE 74; RESP 18; TEMP 98.1; O2SAT 97
[2017-12-14] MEDS: LEVOTHYROXINE SODIUM 25 MCG TAB PO SCH (06:05)
[2017-12-14] MEDS: PALIPERIDONE ER 6 MG TAB PO SCH (09:00)
[2017-12-14] MEDS: BENZTROPINE MESYLATE 2 MG TAB PO SCH (09:41)
[2017-12-14] MEDS: AMETHYST PO SCH (09:41)
[2017-12-14] MEDS: DIVALPROEX SODIUM E.R. 500 MG TAB PO SCH ×2 (09:42→20:48)
--- NOTE | 2017-12-14 15:25 | HHI.PYPN ---
Subjective Remarks Patient seen in [place] today, case was continued by [employer] biomedical repair technician. Patient seen on unit with nurse, chart review, patient compliant medications. Patient's voicing no suicidal ideation is is significantly reduced. She states the voices are just about gone. She is able contract with us to do no harm. We 'll consider discharge to mother tomorrow Review of Systems Except as stated in HPI: all other systems reviewed are Neg Mental Status Examination Appearance: Appropriate Consciousness: Alert Orientation: Person, Place, Date/Time Motor Activity: Normal gait Speech: Unremarkable Language: Adequate Fund of Knowledge: Poor Attention and Concentration: Adequate Memory: Unremarkable Mood: Anxious Affect: Other (slight increased range and intensity) Thought Process & Associations: Circumstantial, Tangential Thought Content: Bizarre thinking, Delusional Hallucination Type: Auditory, Visual Delusion Type: Paranoid Suicidal Ideation: Yes Suicidal Plan: No Suicidal Intention: No Homicidal Ideation: No Homicidal Plan: No Homicidal Intention: No Insight: Poor Judgment: Poor Results Vitals/IOs Vital Signs Date Time Temp Pulse Resp B/P (MAP) Pulse Ox O2 Delivery O2 Flow Rate FiO2 12/14/17 06:02 98.1 74 18 124/58 (80) 97 Intake and Output 12/14/17 12/14/17 12/15/17 08:00 16:00 00:00 Intake Total 720 ml Balance 720 ml Assessment & Plan Problem List: (1) PDD (pervasive developmental disorder) ICD Codes: F84.9 - Pervasive developmental disorder Status: Acute (2) Bipolar I disorder, moderate, current or most recent episode manic, with psychotic features, with mixed features ICD Codes: F31.2 - Bipolar disorder, current episode manic severe with psychotic features Assessment & Plan Estimated LOS: days patient continues somewhat sad and vague voices though there markedly diminished. Patient continues to do well consider discharge tomorrow mother Justification for Cont. Inpt. Consider discharge tomorrow mother Discharge Planning Consider discharge tomorrow to mother Francisco J Turner MD Dec 14, 2017 15:25
[2017-12-14 16:41] VITALS: BP 124/58; PULSE 112; RESP 17; TEMP 97.7; O2SAT 97
[2017-12-14] MEDS: LORazepam 1 MG TAB PO SCH (20:48)
[2017-12-15] MEDS: LEVOTHYROXINE SODIUM 25 MCG TAB PO SCH (05:48)
[2017-12-15 06:00] VITALS: BP 100/68; PULSE 87; RESP 16; TEMP 97.7; O2SAT 98
[2017-12-15] MEDS: DIVALPROEX SODIUM E.R. 500 MG TAB PO SCH (08:58)
[2017-12-15] MEDS: BENZTROPINE MESYLATE 2 MG TAB PO SCH (08:58)
[2017-12-15] MEDS: PALIPERIDONE ER 6 MG TAB PO SCH (08:58)
[2017-12-15] MEDS: AMETHYST PO SCH (09:48)
[2017-12-15] MEDS ORDERED: LEVO25TA4 PO (12:13)
[2017-12-15] MEDS ORDERED: Benztropine PO (12:13)
[2017-12-15] MEDS ORDERED: DEPA500T3 PO (12:13)
[2017-12-15] MEDS ORDERED: LORA2TAB7 PO (12:13)
[2017-12-15] MEDS ORDERED: INVE6TAB3 PO (12:13)
--- NOTE | 2017-12-15 12:19 | HHI.DS ---
Psychiatry Discharge Summary Inpatient Psychiatric care?: Yes Advance Directive: No Reason Not Provided: Due to Patient Condition Mental Health AdvanceDirective: Yes (POA to mother) Health Care Proxy: No Admission Admission Date Dec 09, 2017 at 13:05 Admission Diagnosis: (1) Bipolar I disorder, moderate, current or most recent episode manic, with psychotic features, with mixed features ICD Code: F31.2 - Bipolar disorder, current episode manic severe with psychotic features Brief History Pt seen and discussed with staff. Chart reviewed. Pt is a 27YOWF with a hx of intellectual disability was admitted under a BA to [facility] [place] due to allegations of threats to stab self and paranoia and hallucinations. Staff report that pt was was anxious and agitated this morning and was given ativan PO X1. She readily admits allegations in BA and states that she has been hearing voices of Jack. "My mom says its not real b/c I know him but its different." She states that she is sad b/c father's birthday is coming up and she is worried that mother is sending her to a snf. She states that she still has thoughts of hurting self. No SI/HI. Tobacco Use In Past 30 Days: No Tobacco Past 30 Days Alcohol Use: Never Hospital Course Patient's hospital course was uneventful, patient showing compliant with medication from day of admission. Her childlike behaviors and development normal issues also remained consistent. Though she expresses herself well. The auditory hallucinations of a male voice slightly diminished lupoid with a markedly infrequent not intrusive or irritating. She states her suicidal ideation is essentially gone she is able contracted to no harm. Patient is been compliant with the medication. We have talked with patient's mother. Patient is doing better at this time patient is mostly never come home today follow-up outpatient [facility] Results Blood Pressure 100 / 68 Vital Signs Date Time Temp Pulse Resp B/P (MAP) Pulse Ox O2 Delivery O2 Flow Rate FiO2 12/15/17 06:00 97.7 87 16 100/68 (79) 98 Laboratory Results Test 12/08/17 18:00 12/10/17 09:30 Valproic Acid (Depakene) Level 73 MCG/ML (50-100) Cholesterol Level 147 MG/DL (120-200) HDL Cholesterol 31.0 MG/DL (40.0-60.0) Hemoglobin A1c 6.1 % (4.3-6.0) LDL Cholesterol 79 MG/DL (0-99) Triglycerides Level 186 MG/DL (42-150) Summary of Procedures None done Pending results at discharge: No Medications # of Antipsychotic meds at D/C: 1 Approp Antipsych med options 1 - Minimum of three failed multiple trials of monotherapy. 2 - Documented plan to taper to monotherapy due to previous use of multiple meds OR cross-taper in progress at D/C. 3 - Documentation of augmentation of Clozapine. 4 - Justification other than those listed in allowable values 1-3, document here : Discharge Discharge Date: Dec 15, 2017 Discharge Diagnosis: (1) Bipolar I disorder, moderate, current or most recent episode manic, with psychotic features, with mixed features Diagnosis: Principal ICD Code: F31.2 - Bipolar disorder, current episode manic severe with psychotic features Pt Condition on Discharge: Stable Discharge Disposition: Discharge Home Discharge Instructions Diet Instructions: As Tolerated, No Restrictions Activities you can perform: Regular-No Restrictions Scheduled Appointment: Mahamed Anderson Appointment Date: Nov 29, 2017 Appointment Time: 4:30pm Discharge Time > 30 minutes Mental Status Examination Appearance: Appropriate Consciousness: Alert Orientation: Person, Place, Date/Time Motor Activity: Normal gait Speech: Unremarkable Language: Adequate Fund of Knowledge: Poor Attention and Concentration: Adequate Memory: Unremarkable Mood: Anxious Affect: Other (slight increased range and intensity) Thought Process & Associations: Circumstantial, Tangential Thought Content: Bizarre thinking, Delusional Hallucination Type: Auditory, Visual Delusion Type: Paranoid Suicidal Ideation: Yes Suicidal Plan: No Suicidal Intention: No Homicidal Ideation: No Homicidal Plan: No Homicidal Intention: No Insight: Poor Judgment: Poor Discharge/Advance Care Plan Health Problems: (1) PDD (pervasive developmental disorder) (2) Bipolar I disorder, moderate, current or most recent episode manic, with psychotic features, with mixed features Goals to promote your health * To prevent worsening of your condition and complications * To maintain your health at the optimal level Directions to meet your goals Take your medications as prescribed Follow your dietary instruction Follow activity as directed Keep your appointments as scheduled Take your immunizations and boosters as scheduled If your symptoms worsen call your PCP, if no PCP go to Urgent Care Center or Emergency Room For 10/04 questions related to your inpatient stay or results of tests pending at discharge, please contact Dr. Francisco J Turner at Smoking is Dangerous to Your Health. Avoid second hand smoking Francisco J Turner MD Dec 15, 2017 12:19
[2017-12-15] MEDS ORDERED: LORA-474 PO (12:55)
[2018-01-02] MEDS ORDERED: PALIPERIDONE PALMITATE 156 MG/ML SYRINGE IM SCH (09:00)
== END 2017-12-15 15:20 | disposition home or self-care (01) | DRG 885 ==
LOC: NEPD 12:36 → NEDA 12-09 13:05 → H250 12-09 13:15 → H260 12-12 10:40
PROVIDERS: ADMIT Psychiatry & Neurology Psychiatry; ATTEND Psychiatry & Neurology Psychiatry
DX: F31.2 Bipolar disorder, current episode manic severe with psychotic features (principal); F79 Unspecified intellectual disabilities; F84.9 Pervasive developmental disorder, unspecified; Z91.040 Latex allergy status; H91.8X2 Other specified hearing loss, left ear; E03.9 Hypothyroidism, unspecified; E87.6 Hypokalemia
CPT/HCPCS: 80048; 80053; 80061; 80164; 80307; 81001; 83036; 84443; 85025; 93005; 96372; 99285; J2060; Q0163